=== PATIENT | female | born 1985 | race Caucasian/White ===

== ENCOUNTER 2019-01-08 13:42 | Emergency (ER) | payer OTHER ==
[~2019-01-08] VITALS: Ht 152.4 cm; Wt 54.4 kg
[2019-01-08 13:50] VITALS: BP_SYST 154
--- NOTE | 2019-01-08 13:50 | NUR ---
Placed in room 1 . Placed on premium cancellation clerk, blood pressure machine and pulse oximeter. To gown for exam. Side rails up. Report given to CAMMIE Yuan.
[2019-01-08] MEDS ORDERED: NACL 0.9% 1,000 ML IV ONE ×2 (14:00→15:30)
--- NOTE | 2019-01-08 14:05 | NUR ---
Patient brought in by boyfriend. patient was at [facility] today with boyfriend and son. per boyfriend, while driving patient said she felt funny. he states patient's eye rolled back in head and mouth became frothy. Patient denies any medical history, no past surgies. Per boyfriend patient looked like she was having a seizure. Patient denies history and familial history of seizure. Patient reports drinking heavily daily for past 6 month, one 12-pack beer daily until yesterday when she scaled back to 6-pack per day. will continue to monitor.
--- NOTE | 2019-01-08 14:25 | NUR ---
Patient transported to radiology via gurney, accompanied by technical project coordinator.
[2019-01-08 14:32] LABS: BASOPHILS % (AUTO) 0.8 % (0.0-2.0); EOSINOPHILS % (AUTO) 0.9 % (0.0-4.0); HEMATOCRIT 41.9 % (36-48); HEMOGLOBIN 14.3 g/dL (12.0-16.0); LYMPHOCYTES # (AUTO) 0.6 K/uL (1.0-5.5); LYMPHOCYTES % (AUTO) 14.9 % (20.5-51.5); MEAN CORPUSCULAR HEMOGLOBIN 33 pg (27-31); MEAN CORPUSCULAR HGB CONC 34 % (32-36); MEAN CORPUSCULAR VOLUME 98 fL (79.0-98.0); MONOCYTES # (AUTO) 0.4 K/uL (0.0-1.0); MONOCYTES % (AUTO) 11.8 % (1.7-9.3); NEUTROPHILS # (AUTO) 2.7 K/uL (1.8-7.7); NEUTROPHILS % (AUTO) 71.6 % (40.0-70.0); PLATELET COUNT (AUTO) 78 K/uL (130-430); RED BLOOD CELL COUNT(AUTO) 4.29 MIL/uL (4.2-6.2); RED CELL DISTRIBUTION WIDTH 12.7 % (9.0-15.0); WHITE BLOOD COUNT (AUTO) 3.7 K/uL (4.8-10.8)
--- NOTE | 2019-01-08 14:35 | NUR ---
patient back from radiology
[2019-01-08 14:48] LABS: ANION GAP 15 (5-15); CALCIUM 9.4 mg/dL (8.4-11.0); CHLORIDE 100 mmol/L (98-107); CREATININE 0.85 mg/dL (0.55-1.30); GLUCOSE 119 mg/dL (70-99); POTASSIUM 3.4 mmol/L (3.5-5.1); SODIUM SERUM 140 mmol/L (136-145); UREA NITROGEN, BLOOD 8 mg/dL (8-21)
[2019-01-08 14:50] LABS: GFR AFRICAN AMERICAN 99 mL/min (>90)
[2019-01-08 14:54] LABS: ALANINE AMINOTRANSFERASE 197 U/L (12-78); ALBUMIN 4.2 g/dL (3.4-4.8); ASPARTATE AMINOTRANSFERASE 216 U/L (10-37); TOTAL BILIRUBIN 0.8 mg/dL (0.0-1.0)
[2019-01-08 14:58] LABS: ACETAMINOPHEN < 1 ug/mL (1-30); ALCOHOL, BLOOD < 3 mg/dL (<10)
--- NOTE | 2019-01-08 15:00 | NUR ---
patient in bed resting, no s/s of acute distress noted. will continue to monitor.
[2019-01-08 15:22] LABS: BLOOD, URINE NEGATIVE (NEGATIVE); COLOR,URINE YELLOW (YELLOW); GLUCOSE,URINE NEGATIVE (NEGATIVE); KETONES,URINE 1+ (NEGATIVE); LEUKOCYTE ESTERASE ,URINE TRACE (NEGATIVE); NITRITE, URINE NEGATIVE (NEGATIVE); PROTEIN URINE 1+ (NEGATIVE); UROBILINOGEN,URINE 0.2 (0.2-1.0)
[2019-01-08 15:25] LABS: CLARITY/URINE HAZY (CLEAR)
[2019-01-08 15:31] LABS: BILIRUBIN,URINE 1+ (NEGATIVE)
--- NOTE | 2019-01-08 15:35 | NUR ---
patient in bed, resting. no s/s of acute distress noted. son and father of son in waiting room. will continue to monitor.
[2019-01-08 15:47] LABS: BACTERIA,URINE FEW /HPF (None Seen); RBC,URINE 0-3 /HPF (0-3); WBC,URINE 0-3 /HPF (0-3)
[2019-01-08 15:48] LABS: FINE GRANULAR CASTS,URINE 0-10 /LPF (None Seen); MUCUS,URINE 2+ /LPF (None Seen)
[2019-01-08 15:51] LABS: BARBITURATE, URINE NEGATIVE (NEG <=200); BENZODIAZEPINE, URINE NEGATIVE (NEG <=150); CANNABINOID, URINE NEGATIVE (NEG <=50); COCAINE, URINE NEGATIVE (NEG <=150); METHAMPHETAMINES SCREEN,URINE NEGATIVE (NEG <=500); OPIATE, URINE NEGATIVE (NEG <=100); PHENCYCLIDINE SCREEN,URINE NEGATIVE (NEG <=25); UR TRICYCLIC ANTIDEPRESSANTS NEGATIVE (NEG <=300); URINE AMPHETAMINE NEGATIVE (NEG <=500); URINE METHADONE NEGATIVE (NEG <=200); URINE OXYCODONE SCREEN NEGATIVE (NEG <=100); URINE PROPOXYPHENE SCREEN NEGATIVE (NEG <=300)
--- NOTE | 2019-01-08 16:10 | NUR ---
patient in bed, indicating does not want to stay in ED and wants to go home. dr. peña aware.
[2019-01-08 16:48] VITALS: BP_SYST 147
--- NOTE | 2019-01-08 16:48 | NUR ---
Patient given written and verbal discharge instructions and verbalizes understanding. ER MD discussed with patient the results and treatment provided. Patient in stable condition. ID arm band removed. IV catheter removed intact and dressing applied, no active bleeding. Rx of Zofran given. Patient educated on pain management and to follow up with PMD. Pain Scale 0/10. Opportunity for questions provided and answered. Medication side effect fact sheet provided.
== END 2019-01-08 16:48 | disposition home or self-care (01) ==
LOC: SED 13:42 → EDBD 13:42 → SED 16:48
DX: F10.239 Alcohol dependence with withdrawal, unspecified (principal); R56.9 Unspecified convulsions; R74.0 Nonspecific elevation of levels of transaminase and lactic acid dehydrogenase [LDH]; I10 Essential (primary) hypertension; F12.90 Cannabis use, unspecified, uncomplicated; Y90.0 Blood alcohol level of less than 20 mg/100 ml
CPT/HCPCS: 36415; 70450; 80053; 80307; 81000; 83690; 85025; 87086; 93005; 99284; G0480; G0481; G0482; J7030